=== PATIENT | male | born 1995 | race American Indian/Alaskan Native ===

== ENCOUNTER 2021-07-20 20:51 | Emergency (ER) | payer OTHER ==
[2021-07-20 20:58] VITALS: BP 142/79
[2021-07-20] MEDS ORDERED: ACETAMINOPHEN 500 MG TAB PO ONE (21:51)
[2021-07-20] MEDS ORDERED: IBUPROFEN 600 MG TAB PO ONE (21:51)
[2021-07-20] MEDS ORDERED: diazePAM 5 MG TAB PO ONE (21:51)
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
== END 2021-07-21 00:12 | disposition home or self-care (01) ==
LOC: ED 20:51
DX: M62.838 Other muscle spasm (principal); M54.2 Cervicalgia; G44.309 Post-traumatic headache, unspecified, not intractable; M25.561 Pain in right knee; F17.200 Nicotine dependence, unspecified, uncomplicated; F12.90 Cannabis use, unspecified, uncomplicated; Z72.89 Other problems related to lifestyle
CPT/HCPCS: 70450; 72125; 99283